=== PATIENT | male | born 1985 | race Caucasian/White ===

== ENCOUNTER 2018-11-29 07:58 | Emergency (ER) | payer SELFPAY ==
[~2018-11-29] VITALS: Ht 177.8 cm; Wt 108.9 kg
[2018-11-29 08:08] VITALS: Ht 177.8 cm; Wt 108.9 kg
[2018-11-29 09:56] LABS: CALCIUM 8.7 mg/dL (8.5-10.1); CARBON DIOXIDE 24.2 mmol/L (21-32); CHLORIDE SERUM 99 mmol/L (98-107); CREATININE SERUM 0.8 mg/dL (0.7-1.3); GFR1 > 60 mL/min; GLUCOSE SERUM 96 mg/dL (74-106); PLATELET COUNT 383 x10^3mcL (130-400); POTASSIUM SERUM 3.8 mmol/L (3.5-5.1); SODIUM SERUM 131 mmol/L (136-145)
[2018-11-29 10:01] LABS: ALBUMIN 3.5 g/dL (3.4-5.0); ALKALINE PHOSPHATASE 126 U/L (46-116); ALT/SGPT 33 U/L (16-63); AST/SGOT 26 U/L (15-37); BILIRUBIN TOTAL 0.3 mg/dL (0.20-1.00)
[2018-11-29 10:07] LABS: TOTAL PROTEIN, SERUM 8.6 g/dL (6.4-8.2)
[2018-11-29 10:17] LABS: RED CELL DISTRIBUTION WIDTH 14.9 % (11.5-14.5)
[2018-11-29 11:10] LABS: UA SPECIFIC GRAVITY >=1.030 (1.005-1.035); microscopic required? YES; urine erythrocyte NEGATIVE (NEGATIVE)
[2018-11-29 11:37] LABS: BAND NEUTROPHIL 4 % (0-10); BASOPHIL 0 % (0-2); MONOCYTE 7 % (0-7); SEGMENTED NEUTROPHILS 64 % (37-75)
[2018-11-29 11:38] LABS: PLATELET MORPHOLOGY PLATELETS NORMAL; rbc morphology (normal/abnorm) ABNORMAL (NORMAL)
[2018-11-29 12:06] VITALS: BP 112/84
== END 2018-11-29 12:06 | disposition short-term general hospital (02) ==
LOC: ED 07:58
PROVIDERS: Specialist
DX: N49.2 Inflammatory disorders of scrotum (principal); L03.115 Cellulitis of right lower limb
CPT/HCPCS: 90715; J1885; J2543; Q0092